=== PATIENT | female | born 1995 | race Caucasian/White ===

== ENCOUNTER 2023-12-26 05:34 | Emergency (ER) | payer OTHER, SELFPAY ==
[2023-12-26 05:34] VITALS: BP 144/105; PULSE 74; RESP 16; TEMP 36.8; O2SAT 95
--- NOTE | 2023-12-26 05:39 | ED.NECK ---
HPI - Neck Pain/Injury General Chief Complaint: Neck Pain/Injury Stated Complaint: R side neck and shoulder pain Time Seen by Provider: 12/26/23 05:39 Source: patient Mode of arrival: ambulatory Limitations: no limitations History of Present Illness HPI Narrative: patient is a 28-year-old female with a right neck pain after 3 days she has come to the ER. She sleeps on the couch from time to time and has caused herself of a right neck strain. As an aside the patient is breast feeding. MD complaint: neck pain Onset (ago): day(s) (3) Place: home Radiation: right lateral, occiput and right shoulder Severity: moderate Severity scale (1-10): 6 Quality: sharp Duration: constant Relieving factors: none Exacerbating factors: movement of extremity Context: other ( Sleeping on the couch lately) Associated symptoms: none Treatments prior to arrival: heat therapy Related Data Home Medications Medication Instructions Recorded Confirmed PreNata 1 tablet PO DAILY 12/26/23 12/26/23 Allergies Allergy/AdvReac Type Severity Reaction Status Date / Time No Known Allergies Allergy Verified 12/26/23 05:41 Review of Systems Review of Systems: All systems reviewed & are unremarkable except as noted in HPI and below Constitutional: Constitutional: Reports no additional constitutional complaints Eyes: Eyes: Reports no additional eye complaints ENT: Reports system reviewed and no additional complaints, except as documented Cardiovascular: Cardiovascular: Reports no additional cardiovascular complaints Respiratory: Respiratory: Reports no additional respiratory complaints Gastrointestinal: Gastrointestinal: Reports no additional gastrointestinal complaints Genitourinary: Genitourinary: Reports no additional female genitourinary complaints Musculoskeletal: Musculoskeletal: Reports no additional musculoskeletal complaints Integumentary/Breasts: Skin/Breast: Reports system reviewed and no additional complaints, except as docu Neurologic: Reports system reviewed and no additional complaints, except as documented Psychiatric: Psychiatric: Reports no additional psychiatric complaints Endocrine: Endocrine: Reports no additional endocrine complaints Hematologic/Lymphatic: Hematologic/Lymphatic: Reports no additional hematologic/lymphatic complaints Allergic/Immunologic: Allergic/Immunologic: Reports no additional allergic/immunologic complaints Exam Const: General: healthy appearing Nutritional Appearance: well nourished Orientation/consciousness: patient oriented x3 HENMT: Head: normal to inspection Ears: external ears normal Face/Nose/Sinus: Normal external nose present Eyes: Conjunctivae: conjunctivae normal Pupils: Equal, round and reactive pupils present EOM: EOMs intact bilaterally Neck: Neck: normal visual inspection Chest: Chest palpation & inspection: normal inspection of the chest Resp: Effort & Inspection: normal respiratory effort and not labored Auscultation: clear to auscultation bilaterally and no crackles Cardio: Rate: regular rate Rhythm: regular rhythm Heart sounds: no murmurs GI: Inspection: non-distended GI Palp: Yes Soft to palpation and No Tenderness to palpation present (GI) Auscultation: normal bowel sounds : General: Yes bladder normal to palpation Back/Spine/Pelvis: Back: no CVA tenderness Other: right cervical neck muscles are tight and tender to palpation with inability to turn the head easily at this time Skin: General skin exam: normal color Rashes: no rashes Wounds: no wounds Neuro: General: patient oriented x3 Cranial nerves: Yes Nystagmus not present Speech: normal speech Extrem: General: normal to inspection Psych: Mental Status: mental status grossly normal Affect: normal affect Attitude: cooperative Course Vital Signs Vital signs: Vital Signs Temperature 36.8 C 12/26/23 05:34 Pulse Rate 74 12/26/23 05:34 Respiratory Rate 16 12/26/23 0
[2023-12-26] MEDS: ORPHENADRINE CITRATE 100 MG TABLET.ER PO (05:57)
[2023-12-26] MEDS: predniSONE 20 MG TABLET PO (05:57)
[2023-12-26] MEDS: KETOROLAC (*BKC) 60 MG/2 ML VIAL IM (05:57)
--- NOTE | 2023-12-26 06:02 | PC.NURSE ---
resting on stretcher with mother at her side.
--- NOTE | 2023-12-26 06:18 | PC.NURSE ---
patient reports that the pain medication is helping. patient is now able to move her neck and move her right shoulder.
== END 2023-12-26 06:19 | disposition home or self-care (01) ==
LOC: CHSED 06:04
PROVIDERS: Emergency Provider Emergency Medicine
DX: M43.6 Torticollis (principal); S16.1XXA Strain of muscle, fascia and tendon at neck level, initial encounter; X58.XXXA Exposure to other specified factors, initial encounter
CPT/HCPCS: 96372; 99283; A9270; J1885; J7512